=== PATIENT | female | born 1945 | race Hispanic/Latino ===

== ENCOUNTER 2018-06-25 00:02 | Emergency (ER) | payer MEDICARE ==
[~2018-06-25] VITALS: Ht 160 cm; Wt 116.6 kg
--- OUTSIDE RECORDS SUMMARY | 2018-06-25 00:04 | XMS REPORT ---
Author Author [facility] Address Unknown Phone Unavailable Care Team Providers Care Toy Painter Name Role Phone Unavailable Unavailable Payers Payer Name Policy Type Policy Number Effective Date Expiration Date Problems This patient has no known problems. Allergies, Adverse Reactions, Alerts Allergy Name Allergy Type Status Severity Reaction(s) Onset Date Inactive Date Treating Clinician Comments COMPAZINE DA Active U 2008-06-09 00:00:00 No Known Contrast Allergies DA Active U 2008-06-09 00:00:00 No Known Food Allergies DA Active U 2008-06-09 00:00:00 No Known Other Allergies DA Active U 2008-06-09 00:00:00 Medications This patient has no known medications.
--- OUTSIDE RECORDS SUMMARY | 2018-06-25 00:04 | XMS REPORT | Clinical Summary ---
Author Author [facility] Address Unknown Phone Unavailable Care Team Providers Care Color Checker Name Role Phone Wil Bueno PCP Unavailable Allergies Comments Active Allergy Reactions Severity Noted Date Caused lock jaw symptoms Prochlorperazine Other (See 11/18/2014 Edisylate Comments) cough Lisinopril Other (See 11/29/2015 Comments) Sulfa (Sulfonamide Itching Low 11/20/2014 Antibiotics) Medications End Date Status Medication Sig Dispensed Refills Start Date Active gabapentin (NEURONTIN) Take 300 mg 0 300 MG capsule by mouth 3 (three) times daily. Active levothyroxine (SYNTHROID, Take 150 mcg 0 LEVOTHROID) 150 MCG by mouth tablet daily. Active oxybutynin (DITROPAN-XL) Take 10 mg by 0 10 MG 24 hr tablet mouth daily. Active furosemide (LASIX) 20 MG Take 1 tablet 30 tablet 3 tablet (20 mg total) 5 by mouth daily. Active lisinopril Take 1 tablet 30 tablet 3 (PRINIVIL,ZESTRIL) 20 MG (20 mg total) 5 tablet by mouth daily. Active levothyroxine (SYNTHROID, Take 1 tablet 30 tablet 3 LEVOTHROID) 150 MCG (150 mcg 5 tablet total) by mouth daily. Active gabapentin (NEURONTIN) Take 1 90 capsule 3 300 MG capsule capsule (300 5 mg total) by mouth 3 (three) times daily. Active metFORMIN (GLUCOPHAGE) Take 1 tablet 60 tablet 3 500 MG tablet (500 mg 5 total) by mouth 2 (two) times daily with breakfast and dinner. Active oxybutynin (DITROPAN-XL) Take 1 tablet 30 tablet 3 10 MG 24 hr tablet (10 mg total) 5 by mouth daily. Active pantoprazole (PROTONIX) Take 1 tablet 60 tablet 3 40 MG tablet (40 mg total) 5 by mouth 2 (two) times daily. Active losartan (COZAAR) 25 MG Take 25 mg by 0 tablet mouth daily. Active ammonium lactate Apply 0 (AMLACTIN) 12 % cream topically as needed for Dry Skin. Active azelastine (ASTELIN) 137 1 spray by 0 mcg (0.1 %) nasal spray Nasal route 2 (two) times daily Use in each nostril as directed . Active ferrous sulfate 325 (65 Take 325 mg 0 FE) MG tablet by mouth daily with breakfast. Active fluticasone (FLONASE) 50 1 spray by 0 mcg/actuation nasal spray Nasal route as needed . Active hydrochlorothiazide Take 25 mg by 0 (HYDRODIURIL) 25 MG mouth daily. tablet Active pantoprazole (PROTONIX) Take 40 mg by 0 40 MG tablet mouth daily. Active polyethylene glycol Take 17 g by 0 (GLYCOLAX) 17 gram packet mouth as needed . Active furosemide (LASIX) 40 MG Take 40 mg by 0 tablet mouth nightly. Active HYDROcodone-acetaminophen Take 1 tablet 0 (NORCO 10-325) 10-325 mg by mouth per tablet every 6 (six) hours as needed for Pain. Active Problems Problem Noted Date Primary osteoarthritis of right knee 12/22/2015 Right knee DJD 12/22/2015 Small bowel obstruction 01/16/2015 Anemia due to blood loss 11/21/2014 CHF (congestive heart failure) 11/21/2014 Secondary pulmonary hypertension 11/21/2014 Abdominal pain, left lower quadrant 11/21/2014 Pulmonary nodules 11/21/2014 Ventral hernia, recurrent 11/21/2014 Gastric ulcer 11/21/2014 Hypertension Diabetes mellitus, type II Hypothyroidism Urinary incontinence Social History Date Tobacco Use Types Packs/Day Years Used Quit: 11/29/1971 Former Smoker Cigarettes 2 2 Smokeless Tobacco: Never Used Alcohol Use Drinks/Week oz/Week Comments No Sex Assigned at Date Recorded Not on file Industry Job Start Date Occupation Not on file Not on file Not on file Travel End Travel History Travel Start No recent travel history available. Last Filed Vital Signs Not on file Plan of Treatment Health Maintenance Due Date Last Done Comments INFLUENZA VACCINE 03/11/2018 Implants Device Identifier Shelf Expiration Date Model / Serial / Lot Implanted Type Area Manufactur er 02/08/2017 4301-02 / / [id number] Adhesion Barrier,Seprafilm 5x6 - Cement/Guille N/A: Abdomen GENZYME [id number] ler/Adhesi SURGICAL Implanted: Qty: 1 on 01/18/2015 by ve Case Avitia MD 08/08/2017 6194-1-010 / / [id number] Cement Bone Smplx Hv 6194-1-010 - Cement/Guille Right: Knee ATVIA:ST [id number] ler/Adhesi NINI Implanted: Qty: 1 on 12/22/2015 by ve Zuhair Campo MD 03/07/2020 5515-F-402 / / [id number] Comp Triathlon Ps Fem #4 5515-F-402 Joints Right: Knee TAVIA:ST - [id number] NINI Implanted: Qty: 1 on 12/22/2015 by Zuhair Campo MD 10/05/2020 5551-L-320 / / [id number] Patella Triathlon Asymmetric Joints Right: Knee TAVIA:ST 5551-L-320 - [id number] NINI Implanted: Qty: 1 on 12/22/2015 by Zuhair Campo MD 09/21/2020 5520-B-500 / / [id number] Baseplt Tri Prim Tib 5 5520-B-500 - Joints Right: Knee TAVIA:ST [id number] NINI Implanted: Qty: 1 on 12/22/2015 by Zuhair Campo MD 09/09/2017 5532-P-[id number] / / [id number] Insrt Triathlon Ps Tib #5 11mm Joints Right: Knee TAVIA:ST 5532-P-511 - [id number] NINI Implanted: Qty: 1 on 12/22/2015 by Zuhair Campo MD Results Not on fileafter 06/24/2017 Insurance Payer Benefit Subscriber ID Type Phone Address Plan / Group [facility] xxxxxxxxxxx MEDICARE ADV Advance Directives For more information, please contact: [facility] [address] [place] [id number] Date Inactivated Comments Code Status Date Activated 12/22/2015 6:11 PM Full Code 12/22/2015 8:39 AM This code status was determined by: Patient 01/18/2015 2:25 PM Full Code 01/16/2015 8:42 AM This code status was determined by: Patient 11/21/2014 5:53 PM Full Code 11/18/2014 2:48 PM This code status was determined by: Patient
[2018-06-25] MEDS ORDERED: MORPHINE SULFATE 2 MG/ML SYR IV STA (00:34)
[2018-06-25] MEDS ORDERED: ONDANSETRON HCL INJ 2 MG/ML VIAL IV STA (00:34)
[2018-06-25] MEDS ORDERED: FAMOTIDINE 20 MG/2 ML VIAL IV STA (00:36)
--- NOTE | 2018-06-25 02:19 | Diagnostic Imaging Report ---
EXAM: CT ABDOMEN AND PELVIS WITH IV CONTRAST INDICATION: Abdominal pain with nausea and vomiting, periumbilical pain, history of bleeding ulcer and bowel obstruction COMPARISON: None TECHNIQUE: The abdomen and pelvis were scanned using a multidetector helical scanner. Coronal and sagittal reformations were obtained. Dose modulation, iterative reconstruction, and/or weight based adjustment of the mA/kV was utilized to reduce the radiation dose to as low as reasonably achievable. Routine protocol performed. IV Contrast: 100 cc Isovue-370 Oral Contrast: None CTDIvol has been reviewed. It is below the limits set by the Radiation Protocol Committee (RPC). FINDINGS: LOWER THORAX: Mild bibasilar subsegmental atelectasis. LIVER: No masses BILIARY: Small layering gallstones and mild gallbladder wall thickening. No biliary dilation. SPLEEN: No masses PANCREAS: No pancreatic masses. Peripancreatic fat-stranding predominantly around the head. ADRENALS: Round homogeneous left adrenal gland nodule measuring 1.5 cm. KIDNEYS: No enhancing masses. No hydronephrosis. GI TRACT: No wall thickening or obstruction. Normal appendix. VESSELS: Mild atherosclerotic changes of the abdominal aorta without aneurysm. PERITONEUM/RETROPERITONEUM: No free air or fluid LYMPH NODES: No lymphadenopathy REPRODUCTIVE ORGANS: Poorly visualized BLADDER: Normal SOFT TISSUES: Large wide-necked umbilical hernia containing small and large bowel. BONES: No suspicious bone lesions. IMPRESSION: 1. Nonspecific peripancreatic fat stranding. Recommend laboratory correlation for possible pancreatitis. 2. Cholelithiasis and nonspecific mild gallbladder wall thickening. 3. Large wide necked umbilical hernia containing loops of small and large bowel without obstruction. Normal appendix. 4. Incidental 1.5 cm left adrenal gland nodule. In the absence of prior imaging and without a prior history of cancer, current recommendations are to consider 12 month follow-up adrenal mass protocol CT. Signed by: Dr. Clarita Quinonez M.D. on 06/25/2018 2:16 AM
--- NOTE | 2018-06-25 03:57 | Diagnostic Imaging Report ---
Exam: Right upper quadrant ultrasound Indication: Right upper quadrant/epigastric pain Comparison: CT of the abdomen and pelvis with IV contrast June 25, 2018 Findings: The liver measures 15.1 cm in length and is without mass. Normal diameter of the main portal vein at 0.9 cm with normal hepatopedal flow. The right kidney measures 9.7 cm in length and is normal. The pancreas is poorly visualized. Normal appearance of the partially visualized aorta and inferior vena cava. The gallbladder contains multiple gallstones and wall thickness at the upper limits of normal in size at 4 mm. The gallbladder is not hydropic. The sonographic Gagnon's sign was negative. The common bile duct is poorly visualized, but is not dilated. Impression: Cholelithiasis with gallbladder wall thickness at the upper limits of normal. No gallbladder hydrops and the sonographic Gagnon's sign was negative. If there is continued concern for gallbladder pathology, consider nuclear medicine biliary scan (HIDA scan) to assess gallbladder function. Signed by: Dr. Clarita Quinonez M.D. on 06/25/2018 3:54 AM
== END 2018-06-25 04:26 | disposition home or self-care (01) ==
LOC: FSED 00:02
DX: K80.20 Calculus of gallbladder without cholecystitis without obstruction (principal); I10 Essential (primary) hypertension; E11.9 Type 2 diabetes mellitus without complications; E03.9 Hypothyroidism, unspecified
CPT/HCPCS: 74177; 76705; 80048; 80076; 81003; 82553; 84484; 85025; 93005; 99283

== ENCOUNTER 2021-08-10 16:50 | Emergency (ER) | payer MEDICARE ==
[~2021-08-10] VITALS: Ht 160 cm; Wt 116.6 kg
[2021-08-10] MEDS ORDERED: CEPHALEXIN500 MG PO (20:19)
== END 2021-08-10 20:20 | disposition home or self-care (01) ==
LOC: ER 16:59
DX: M79.672 Pain in left foot (principal); M79.662 Pain in left lower leg; I10 Essential (primary) hypertension; E11.9 Type 2 diabetes mellitus without complications; E03.9 Hypothyroidism, unspecified
CPT/HCPCS: 93971; 99283